=== PATIENT | male | born 1970 | race Caucasian/White ===

== ENCOUNTER 2022-07-28 17:56 | Outpatient (REF) | payer OTHER, SELFPAY ==
[2022-07-28 18:47] LABS: Abs Immature Grans 0.07 10^3/uL (0.0-0.06); Absolute Basophil Count 0.14 10^3/uL (0.0-0.2); Absolute Eosinophil Count 0.55 10^3/uL (0.0-0.7); Absolute Monocyte Count 1.02 10^3/uL (0.1-0.8); Absolute Neutrophil Count 9.23 10^3/uL (1.2-6.7); Basophils % 1.1; Eosinophils % 4.2; HCT 46.3 % (40.0-50.0); HGB 15.9 g/dL (13.5-17.5); Immature Grans % 0.5; Lymphocytes % 16.1; MCH 32.4 pg (27.0-33.0); MCHC 34.3 % (32.0-36.0); MCV 95 fL (80-95); Monocytes % 7.8; Neutrophils % 70.3; Platelet Count 278 10^3/uL (130-400); RDW 12.3 % (11.8-14.1); RDW-SD 43.2 fL; WBC 13.13 10^3/uL (4.4-10.8)
[2022-07-28 18:48] LABS: Absolute Lymphocyte Count 2.11 10^3/uL (1.2-3.4)
[2022-07-28 18:59] LABS: ALT 46 U/L (16-63); AST 29 U/L (15-37); Albumin 3.9 g/dL (3.4-5.0); Alkaline Phosphatase 79 U/L (46-116); BUN 12 mg/dL (7-18); Bilirubin, Total 0.3 mg/dL (0.2-1.0); CREATININE 0.8 mg/dL (0.70-1.30); Calcium 9.1 mg/dL (8.5-10.1); Calculated LDL 135 mg/dL (<100); Chloride 102 mmol/L (98-107); Cholesterol 214 mg/dL (<200); Estimated GFR 107.82 (mL/min/1.73m2); Glucose 102 mg/dL (74-106); HDL Cholesterol 66 mg/dL (40-60); Sodium 138 mmol/L (136-145); Total Protein 7.7 g/dL (6.4-8.2); Triglyceride 68 mg/dL (<150)
== END 2022-07-28 17:57 | disposition home or self-care (01) ==
LOC: NCHCN 17:56
PROVIDERS: PCP Family Medicine; Visit Provider Nurse Practitioner Family
DX: F10.21 Alcohol dependence, in remission (principal); F41.8 Other specified anxiety disorders; E78.5 Hyperlipidemia, unspecified; F17.210 Nicotine dependence, cigarettes, uncomplicated
CPT/HCPCS: 80053; 80061; 85025

== ENCOUNTER 2022-12-09 12:39 | Emergency (ER) | payer OTHER, SELFPAY ==
[2022-12-09 12:42] VITALS: BP 137/75; PULSE 95; RESP 18; TEMP 36.7; O2SAT 100
[2022-12-09] MEDS: LORazepam 1 MG TAB PO (14:14)
[2022-12-09] MEDS: Acetaminophen 325 MG TAB 650 MG PO (14:14)
[2022-12-09 14:15] LABS: Abs Immature Grans 0.03 10^3/uL (0.0-0.06); Absolute Basophil Count 0.14 10^3/uL (0.0-0.2); Absolute Lymphocyte Count 2.18 10^3/uL (1.2-3.4); Absolute Monocyte Count 0.76 10^3/uL (0.1-0.8); Absolute Neutrophil Count 7.99 10^3/uL (1.2-6.7); Basophils % 1.2; Eosinophils % 3.6; HCT 46.3 % (40.0-50.0); HGB 16.1 g/dL (13.5-17.5); Immature Grans % 0.3; Lymphocytes % 18.9; MCH 32.4 pg (27.0-33.0); MCHC 34.8 % (32.0-36.0); MCV 93 fL (80-95); MPV 9.2 fL (8.0-11.0); Monocytes % 6.6; Neutrophils % 69.4; Platelet Count 244 10^3/uL (130-400); RBC 4.97 10^6/uL (4.36-5.78); RDW 13.1 % (11.8-14.1); WBC 11.52 10^3/uL (4.4-10.8)
[2022-12-09 14:16] LABS: Absolute Eosinophil Count 0.41 10^3/uL (0.0-0.7)
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
[2022-12-09 14:30] LABS: *AMPHETAMINES SCREEN URINE Negative (Negative); *BARBITURATES SCREEN URINE Negative (Negative); *BENZODIAZEPINES SCREEN URINE Positive (Negative); Cannabinoids THC Positive (Negative); Cocaine Screen,Urine Negative (Negative); METHADONE URINE SCREEN Negative (Negative); OPIATES URINE SCREEN Positive (Negative); Tricyclic Antidepressants Negative (Negative)
[2022-12-09 14:42] LABS: ALT 38 U/L (16-63); AST 29 U/L (15-37); Albumin 4.3 g/dL (3.4-5.0); Alkaline Phosphatase 73 U/L (46-116); Anion Gap 7.5 mmol/L (3-11); BUN 13 mg/dL (7-18); Bilirubin, Total 0.4 mg/dL (0.2-1.0); CO2 29.5 mmol/L (21.0-32.0); CREATININE 0.9 mg/dL (0.70-1.30); Calcium 9.4 mg/dL (8.5-10.1); Chloride 103 mmol/L (98-107); Estimated GFR 104.05 (mL/min/1.73m2); Glucose 88 mg/dL (74-106); Potassium 4.1 mmol/L (3.5-5.1); Sodium 140 mmol/L (136-145); Total Protein 8.1 g/dL (6.4-8.2)
[2022-12-09 15:00] LABS: FREE T4 0.89 ng/dL (0.76-1.46)
[2022-12-09] MEDS: diphenhydrAMINE 25 MG CAP (16:05)
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
--- NOTE | 2022-12-09 22:56 | ED.PROG_ITS ---
Date of service: 12/09/22 Time of Service: 03:00 Medical Decision Making Patient was signed out to me by Dr. Hager who came with anxiety and depression who was seen in [facility] and he left AMA and is here also stating that he is depressed but not suicidal homicidal. He has been medically cleared and will be evaluated by crisis in the morning. Medical Records Medical records reviewed: Yes I reviewed the patient's medical records. Exam Narrative Exam Narrative: Exam unchanged as per Does have a Dr Hager's exam Sign Out Sign Out Data: Sign Out Comment: pending [facility] eval for psych plan; depression, anxiety Last updated by Alvaro Liang MD at 12/09/22 15:31 Discharge Plan Discharge Details Chief Complaint: PsychEval Primary Care Provider: Huy Freed ED Provider: Gabriele Sheffield Home Meds and New Rx's Prescriptions: No Action lorazepam 0.5 MG tablet 0.5 mg PO BID PRN PRN (Reason: Anxiety) Qty: 8 0RF trazodone 50 mg tablet 50 mg PO DAILY Patient Comments: TAKE ONE TABLET BY MOUTH AT BEDTIME NEEDED diazepam [Valium] 5 mg tablet 5 mg PO BID Patient Comments: 1 tablet by mouth twice a day oxycodone 5 mg tablet 5 mg PO PRN PRN lamotrigine 25 mg Tablet 25 mg PO DAILY Patient Comments: new rx 12/09/22 hydroxyzine HCl 25 mg Tablet 25 - 50 mg PO Q6H
--- NOTE | 2022-12-09 23:18 | W.EDPROG ---
Date of service: 12/09/22 Time of Service: 23:00 Medical Decision Making 2300 -- please see previous providers notes for initial presentation, exam, plan and course. Case endorsed to continue to monitor while awaiting placement. Patient is here awaiting placement for anxiety and depression in the setting of alcohol abuse, recent DUI and increased life stressors, specifically with his mother. Initial assessment per triage and provider determined that pt is not SI or HI. Mental health note reported that pt is suicidal at times but has no intent or plan. He has had no CPSO since arrival. He has been medically cleared. He has been evaluated by mental health and they are seeking inpatient psychiatric hospitalization. It has been reported that inpatient referrals for placement have been sent. We will hold patient in the ED overnight to determine if there is any potential for transfer tomorrow and if not and there is sufficient bed availability, will likely admit to the floor while awaiting placement. Provider notes indicate that patient's last drink was 2 days ago. He had reportedly been medically cleared and his vitals were reassuring on arrival. Evening nursing staff reports that pt has been sleeping since their arrival at 1830. He had received Ativan and Benadryl for sleep this afternoon. 0430 -- recheck of vitals within normal limits. Patient had no acute complaints. 0600 -- patient ambulatory to the bathroom and appears in no acute distress. No observable signs of alcohol withdrawal. 0800 -- Case endorsed to oncoming provider to continue to monitor while awaiting placement. If potential availability for transfer this morning, will hold in the ED. If unlikely transfer available today, consider admission to the floor while awaiting placement. Medical Records Medical records reviewed: Yes I reviewed the patient's medical records. Sign Out Sign Out Data: Sign Out Comment: pending [facility] eval for psych plan; depression, anxiety Last updated by Alvaro Liang MD at 12/09/22 15:31 Sign Out Comment: pending [facility] eval for psych plan; depression, anxiety. He has abnormal behavior in the emergency department and received Benadryl for sleep. Last updated by Gabriele Sheffield MD at 12/09/22 23:00 Discharge Plan Discharge Details Chief Complaint: PsychEval Primary Care Provider: Huy Freed ED Provider: Tereza Louie Home Meds and New Rx's Prescriptions: No Action lorazepam 0.5 MG tablet 0.5 mg PO BID PRN PRN (Reason: Anxiety) Qty: 8 0RF trazodone 50 mg tablet 50 mg PO DAILY Patient Comments: TAKE ONE TABLET BY MOUTH AT BEDTIME NEEDED diazepam [Valium] 5 mg tablet 5 mg PO BID Patient Comments: 1 tablet by mouth twice a day oxycodone 5 mg tablet 5 mg PO PRN PRN lamotrigine 25 mg Tablet 25 mg PO DAILY Patient Comments: new rx 12/09/22 hydroxyzine HCl 25 mg Tablet 25 - 50 mg PO Q6H
[2022-12-09 23:44] LABS: ETHANOL BLOOD < 3.0 mg/dL (<10)
[2022-12-10 04:21] VITALS: BP 113/76; PULSE 75; RESP 16; TEMP 36.6; O2SAT 98
[2022-12-10] MEDS: Ibuprofen 600 MG TAB PO (06:46)
[2022-12-10] MEDS: Acetaminophen 500 MG TAB 1000 MG PO (06:46)
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
[2022-12-10] MEDS: Nicotine 4 MG GUM CH (09:11)
[2022-12-10] MEDS: lamoTRIgine 25 MG TAB PO (09:11)
--- NOTE | 2022-12-10 11:54 | ED.PROG_ITS ---
Date of service: 12/10/22 Time of Service: 11:54 Medical Decision Making pt now denying si and wants to go home, has been calm and cooperative since being here and is caox4 with clear speech and no concerning findings on physical exam. Evaluated by [facility] and created a safety plan with them. He is stable for d/c, will f/u with [facility] and return precautions given Sign Out Sign Out Data: Sign Out Comment: pending [facility] eval for psych plan; depression, anxiety Last updated by Alvaro Liang MD at 12/09/22 15:31 Sign Out Comment: pending [facility] eval for psych plan; depression, anxiety. He has abnormal behavior in the emergency department and received Benadryl for sleep. Last updated by Gabriele Sheffield MD at 12/09/22 23:00 Sign Out Comment: Voluntary. Medically cleared. Awaiting placement. Last updated by Tereza Louie DO at 12/10/22 08:11 Discharge Plan Disposition Patient Disposition: Home Condition: Stable Discharge Details Clinical Impression: Depression Primary Care Provider: Huy Freed ED Provider: Benoit Nieto [place] Meds and New Rx's Prescriptions: Continued lorazepam 0.5 MG tablet 0.5 mg PO BID PRN PRN (Reason: Anxiety) Qty: 8 0RF trazodone 50 mg tablet 50 mg PO DAILY Patient Comments: TAKE ONE TABLET BY MOUTH AT BEDTIME NEEDED diazepam [Valium] 5 mg tablet 5 mg PO BID Patient Comments: 1 tablet by mouth twice a day oxycodone 5 mg tablet 5 mg PO PRN PRN lamotrigine 25 mg Tablet 25 mg PO DAILY Patient Comments: new rx 12/09/22 hydroxyzine HCl 25 mg Tablet 25 - 50 mg PO Q6H Discharge Instructions Instructions: Depression (ED) Additional Instructions: Follow up with your primary care provider and [facility] human services if you feel more ill or have worsening thoughts of self harm return to the emergency department
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
== END 2022-12-10 13:42 | disposition home or self-care (01) ==
PROVIDERS: Emergency Medicine; Physician Assistant; Emergency Provider Emergency Medicine; PCP Family Medicine
DX: F32.A Depression, unspecified (principal); Z73.3 Stress, not elsewhere classified; F10.10 Alcohol abuse, uncomplicated; F41.9 Anxiety disorder, unspecified
CPT/HCPCS: 80053; 80307; 99283; 80320; 84439; 84443; 85025

== ENCOUNTER 2024-07-04 15:46 | Outpatient (REF) | payer OTHER, SELFPAY ==
[2024-07-04 20:45] LABS: ALT 40 U/L (16-63); AST 28 U/L (15-37); Albumin 4.5 g/dL (3.4-5.0); Alkaline Phosphatase 60 U/L (46-116); Anion Gap 8.3 mmol/L (3-11); BUN 18 mg/dL (7-18); Bilirubin, Total 0.36 mg/dL (0.2-1.0); CO2 28.7 mmol/L (21.0-32.0); CREATININE 0.9 mg/dL (0.70-1.30); Calcium 9.4 mg/dL (8.5-10.1); Calculated LDL 127 mg/dL (<100); Chloride 105 mmol/L (98-107); Cholesterol 240 mg/dL (<200); Estimated GFR 102.76 (mL/min/1.73m2); Glucose 87 mg/dL (74-106); HDL Cholesterol 95 mg/dL (40-60); Potassium 4.1 mmol/L (3.5-5.1); Sodium 142 mmol/L (136-145); Total Protein 7.7 g/dL (6.4-8.2); Triglyceride 90 mg/dL (<150)
[2024-07-05 19:02] LABS: Hepatitis C Ab w Rflx HCV PCR Negative (Negative)
== END 2024-07-04 15:47 | disposition home or self-care (01) ==
LOC: NCHCN 15:46
PROVIDERS: PCP Family Medicine; Visit Provider Nurse Practitioner Family
DX: Z00.00 Encounter for general adult medical examination without abnormal findings (principal)
CPT/HCPCS: 80053; 80061; 86803

== ENCOUNTER 2024-10-03 19:59 | Outpatient (REF) | payer BC, SELFPAY ==
[2024-10-03 22:21] LABS: Bacteria Negative HPF (Negative); C & S Indicated? No; Casts Negative LPF (Negative); Crystals Rare Uric Acid HPF (Negative); Epithelial Cells Rare HPF (Negative); Mucus Negative (Negative); RBC 0-2 HPF (0-2); WBC Negative HPF (0-5)
== END 2024-10-03 20:00 | disposition home or self-care (01) ==
LOC: NCHCN 19:59
PROVIDERS: PCP Nurse Practitioner Family; Visit Provider Nurse Practitioner Family
DX: R31.29 Other microscopic hematuria (principal)
CPT/HCPCS: 81015

== ENCOUNTER 2025-02-21 09:32 | Emergency (ER) | payer BC, SELFPAY ==
[2025-02-21] VITALS (20 sets, daily range): BP systolic 138–169; BP diastolic 73–105; PULSE 73–95; RESP 7–21; TEMP 36.6; O2SAT 97–99
--- NOTE | 2025-02-21 10:00 | DI.CT_ITS ---
Exam(s) CT ABDOMEN PELVIS W EXAM: CT ABDOMEN PELVIS W CLINICAL HISTORY: central abdominal pain,new hernia, R flank pain. TECHNIQUE: Imaging Protocol: Axial computed tomography images with coronal and sagittal reformatted images were created and reviewed CONTRAST MATERIAL: Intravenous: Omnipaque 350 Contrast volume:100 ml Oral: Yes COMPARISON: CT CT SPINE THORACIC AND LUMBAR W/O from 01/04/[address] CHEST/ABD/PELVIS W/CONTRAST from 01/04/2025 FINDINGS: ABDOMEN and PELVIS: Lung Bases: No acute findings. Liver: Normal density. There are few small cysts. No suspicious mass. Gallbladder and biliary tract: No radiodense calculus. No wall thickening or pericholecystic fluid. No biliary dilation. Pancreas: Normal density. No abnormal calcifications or inflammatory process. No evidence of mass. Spleen: Normal. Kidneys: Normal size, contour and axis. No radiodense stones. No obstructive uropathy. Small cyst upper pole right kidney. No suspicious masses seen. Adrenal glands: No masses seen. Vasculature: Abdominal aorta non-dilated. Soft tissues: Unremarkable minimal amount of fat in the left inguinal canal. Bladder: No gross wall thickening. No calculi.No focal mass. Bowel: No obstruction. No bowel wall thickening. Appendix normal. Diverticulosis of the descending and sigmoid Peritoneal cavity: No ascites. No focal collection. No mesenteric inflammatory response. No free air. Bones: There is mild compression of the anterosuperior endplate of L1 with some end plate sclerosis, consistent with some increased healing. There are old bilateral L5 pars defects. There degenerative disc changes greatest at L4-5 and L5-S1. There are prominent fluid bridging osteophytes at L2-3. Reproductive organs: Unremarkable. Lymph nodes: No pathologically enlarged lymph nodes. IMPRESSION:: No acute abnormality in the abdomen or pelvis. Stable mild L1 compression fracture. No new fractures are identified RADIATION DOSE DELIVERED: 429.88mGy.cm Total DLP DATA REPOSITORY: All CT scans at this facility are submitted to the National Radiology Data Registry (NRDR) Dose Index Registry (DIR) with the [employer] (A[employer]). RADIATION OPTIMIZATION: All CT scans at this facility use at least one of these dose optimization techniques: automated exposure control; mA and/or kV adjustment per patient size (includes targeted exams where dose is matched to clinical indication); or iterative reconstruction.
[2025-02-21 10:10] LABS: Abs Immature Grans 0.04 10^3/uL (0.0-0.06); HCT 44.1 % (40.0-50.0); HGB 15.3 g/dL (13.5-17.5); Immature Grans % 0.4 %; MCH 32.5 pg (27.0-33.0); MCHC 34.7 % (32.0-36.0); MCV 94 fL (80-95); MPV 9.2 fL (8.0-11.0); Platelet Count 265 10^3/uL (130-400); RBC 4.71 10^6/uL (4.36-5.78); RDW 13.0 % (11.8-14.1); RDW-SD 44.7 fL; WBC 10.92 10^3/uL (4.4-10.8)
[2025-02-21] MEDS: Ketorolac 15 MG/ML VIAL IVP (10:20)
[2025-02-21] MEDS: Ondansetron 4 MG/2 ML VIAL IVP (10:20)
[2025-02-21] MEDS: Normal Saline 1,000 ML 1000 ML IV (10:21)
[2025-02-21] MEDS: ACETAMINOPHEN 1,000 MG/100 ML BAG 400 MG IVPB (10:21)
[2025-02-21 10:30] LABS: ALT 79 U/L (16-63); AST 45 U/L (15-37); Albumin 4.2 g/dL (3.4-5.0); Alkaline Phosphatase 99 U/L (46-116); Anion Gap 10.3 mmol/L (3-11); BUN 23 mg/dL (7-18); Bilirubin, Total 0.5 mg/dL (0.2-1.0); CO2 27.7 mmol/L (21.0-32.0); Calcium 9.8 mg/dL (8.5-10.1); Chloride 98 mmol/L (98-107); Estimated GFR 90.00 (mL/min/1.73m2); Glucose 117 mg/dL (74-106); Lipase 41 U/L (<78); Magnesium 2.0 mg/dL (1.8-2.4); Potassium 4.0 mmol/L (3.5-5.1); Sodium 136 mmol/L (136-145); Total Protein 7.9 g/dL (6.4-8.2); Troponin I 5 ng/L (<or=76)
[2025-02-21] MEDS: Omnipaque 350 MG/ML 50 ML BTL PO (10:45)
[2025-02-21] MEDS: Breeza Beverage 473 ML BTL PO ×2 (10:45→10:46)
--- NOTE | 2025-02-21 11:18 | ED.GENADUL_ITS ---
Discharge Plan Disposition Patient Disposition: Home Condition: Stable Discharge Details Clinical Impression: Gastritis Primary Care Provider: SIVA CAMACHO ED Provider: Ellis Nickerson Home Meds and New Rx's Prescriptions: No Action lisdexamfetamine 40 mg capsule 40 mg PO DAILY Discharge Instructions Instructions: Gastritis ED Additional Instructions: You were seen in the emergency department for your centralized abdominal pain, there is no focal abnormality seen on your CT, there is no signs of dangerous infection or electrolyte abnormalities on your laboratory workup. You do have a broken the lumbar vertebrae and you may have some referred pain from pinched nerves in this area radiating around to your anterior abdomen also you have been taking 2400 mg of ibuprofen per day for about a month which likely is contributing to acid reflux and gastritis. Please discontinue ibuprofen and use Tylenol 1000 mg 4 times per day, use the prescribed ondansetron to aid in nausea and vomiting relief 20 to 30 minutes prior to meals. Take daily [id number] famotidine or Pepcid AC twice per day for a few weeks. Please follow-up with your primary care appointment on the and have them possibly schedule you for an ultrasound of the right upper quadrant and an EGD prior to that visit. Please return to the emergency department for any severe acute worsening, intractable nausea or vomiting or any other emergent concerns Stand Alone Forms: Work Release Referrals: SIVA CAMACHO, [employer] [Primary Care Provider, Medicine] Discharge Data Discharge Date/Time-TO BE ENTERED AT DEPARTURE: 02/21/25 13:17 HPI General Date/Time Provider Initiated Documentation: 02/21/25 09:59 . HPI Narrative: 55 year-old male presents to ED today by POV/ambulating with a chief complaint of generalized abdominal pain with onset for the past few weeks. Quality described as strong waves of pain that come on- and cause him to vomit foamy stomach acid which usually provides some relief, no radiation to hematemesis, fever, dysuria, black/tarry stools, cough, shortness of breath. Severity is described as severe. Palliating factors include usually feels better after vomiting. Provoking factors include nothing specific. Events leading up to the incident/Associated Symptoms: Patient denies any abdominal surgical history, recently had a compression fracture of lumbar vertebra that is healing well but he has been taking excessive amounts of NSAIDs 2400 mg/day for about a month. Patient not anticoagulated. Related Data Home Medications ?Medication ?Instructions ?Recorded ?Confirmed lisdexamfetamine 40 mg capsule 40 mg PO DAILY 02/12/25 02/21/25 Allergies Allergy/AdvReac Type Severity Reaction Status Date / Time vu rodríguez AdvReac Mild Other (See Unverified 02/21/25 09:41 Comment) General Stated Complaint: Abd Prob WON: 3 Review of Systems All systems reviewed & are unremarkable except as noted in HPI and below Exam Narrative Exam Narrative: GENERAL APPEARANCE: Well-nourished, non-toxic, awake and alert, atraumatic, no acute distress. SKIN: Warm, pink, dry, intact, without rashes/lesions/ulcerations. HEAD: Normocephalic, atraumatic, normal hair distribution for gender/age. EYES: Normal conjunctiva, no exudates on lids/lashes. ENT: Nares patent, no circumoral cyanosis, no facial swelling NECK: Supple, trachea midline, painless cervical ROM. LUNGS/CHEST: Lungs CTA bilaterally- no rhonchi/rales/wheezes diffusely, non- labored respirations, normal A/P diameter, symmetrical expansion, no chest wall deformity HEART (CV/PV): Regular rate and rhythm without murmur, no peripheral edema, no JVD. ABDOMEN: Soft, non-distended, no guarding, epigastric / RUQ tenderness with (+) David's, no McBurney's point tenderness, no CVA tenderness to percussion bilaterally MSK: Normal ROM, no swelling/deformity to bilateral UEs or LEs, moving all extremities without weakness, no cyanosis, spine midline without tenderness, normal curvature. NEURO: Mental Status AAOx4 - alert to person, place, time, events No facial droop, no forehead involvement. Motor: No focal weakness - strength 5/5 in bilateral UEs and LEs, proximal and distal, symmetric. Sensory: sensation intact to light touch globally. Gait normal: patient ambulated without ataxia into ED room. PSYCH: euthymic, cooperative, pleasant, appropriate speech Course Vital Signs Vital signs: Vital Signs Temperature 36.6 C 02/21/25 09:37 Pulse 88 02/21/25 09:37 Respiratory Rate 17 02/21/25 09:37 Blood Pressure 169/98 H 02/21/25 09:37 Pulse Oximetry 99 02/21/25 09:37 Temperature 36.6 C 02/21/25 09:41 Pulse 88 02/21/25 09:41 Respiratory Rate 17 02/21/25 09:41 Blood Pressure 169/98 H 02/21/25 09:41 Blood Pressure Position Sitting 02/21/25 09:41 Pulse Oximetry 99 02/21/25 09:41 Oxygen Delivery Method Room Air 02/21/25 09:41 Oxygen Flow Rate 0 02/21/25 09:41 Pain Level 10 02/21/25 10:20 Lab/Test Results Lab/Test Results: Laboratory Tests Range/Units 02/21/25 09:55 WBC (4.4-10.8) 10^3/uL 10.92 H RBC (4.36-5.78) 10^6/uL 4.71 Hgb (13.5-17.5) g/dL 15.3 Hct (40.0-50.0) % 44.1 MCV (80-95) fL 94 MCH (27.0-33.0) pg 32.5 MCHC (32.0-36.0) % 34.7 RDW (11.8-14.1) % 13.0 Plt Count (130-400) 10^3/uL 265 MPV (8.0-11.0) fL 9.2 Immature Gran % % 0.4 Neutrophils % % 78.4 Lymphocytes % % 11.9 Monocytes % % 7.2 Eosinophils % % 1.4 Basophils % % 0.7 Nucleated RBC % (0.0-0.3) % 0.0 Absolute Neutrophils (1.2-6.7) 10^3/uL 8.56 H Absolute Lymphocytes (1.2-3.4) 10^3/uL 1.30 Absolute Monocytes (0.1-0.8) 10^3/uL 0.79 Absolute Eosinophils (0.0-0.7) 10^3/uL 0.15 Absolute Basophils (0.0-0.2) 10^3/uL 0.08 VBG Lactate (<or=2.0) mmol/L 0.8 Sodium (136-145) mmol/L 136 Potassium (3.5-5.1) mmol/L 4.0 Chloride (98-107) mmol/L 98 Carbon Dioxide (21.0-32.0) mmol/L 27.7 Anion Gap (3-11) mmol/L 10.3 BUN (7-18) mg/dL 23 H Creatinine (0.70-1.30) mg/dL 1.0 Est GFR (CKD-EPI 2020) (mL/min/1.73m2) 90.00 Glucose (74-106) mg/dL 117 H Calcium (8.5-10.1) mg/dL 9.8 Magnesium (1.8-2.4) mg/dL 2.0 Total Bilirubin (0.2-1.0) mg/dL 0.5 AST (15-37) U/L 45 H ALT (16-63) U/L 79 H Alkaline Phosphatase (46-116) U/L 99 Troponin I (<or=76) ng/L 5 Total Protein (6.4-8.2) g/dL 7.9 Albumin (3.4-5.0) g/dL 4.2 Lipase (<78) U/L 41 Medical Decision Making This dictation utilizes [id number] dictation software and may contain unedit ed grammatical errors. 55 year-old male presents to ED today by POV/ambulating with a chief complaint of generalized abdominal pain with onset for the past few weeks. Quality described as strong waves of pain that come on- and cause him to vomit foamy stomach acid which usually provides some relief, no radiation to hematemesis, fever, dysuria, black/tarry stools, cough, shortness of breath. Severity is described as severe. Palliating factors include usually feels better after vomiting. Provoking factors include nothing specific. Events leading up to the incident/Associated Symptoms: Patient denies any abdominal surgical history, recently had a compression fracture of lumbar vertebra that is healing well but he has been taking excessive amounts of NSAIDs 2400 mg/day for about a month. Patients' medical history: Fractured lumbar vertebra, nicotine dependence, alcoholism in remission. Family and social history: Noncontributory. Pertinent exam findings / vital signs include epigastric tenderness, positive David sign, no CVA tenderness to percussion, benign cardiopulmonary exam, neuro intact, afebrile and nontoxic. Differential / pathologies of concern include gastritis, PUD, biliary colic, pancreatitis, SBO. Diagnostic studies of: -CBC, CMP, lactate, magnesium, lipase, troponin, UA, CT ABD/pelvis with contrast. - CBC shows mild leukocytosis of 10.92, nonspecific, no left shift, no anemia - Lactate negative - CMP shows no actionable abnormality with mildly elevated BUN at 23 - Magnesium is within normal limits - Lipase negative - Troponin negative - UA shows trace blood no signs of infection - CT shows stable L1 compression fracture and no other pathology Interventions of: -4 mg IVP ondansetron, 15 mg IVP Toradol, 1 g IV Tylenol, 1 L IVF NS. ED Course/Assessment/Plan: 55-year-old male with an L1 compression fracture is complaining of severe abdominal pain, CT is negative, I do suspect that he is having gastritis due to high-dose NSAID use for the past month due to his stable compression L1 fracture. He has no signs of severe infection, troponins negative did not suspect any damage to the heart with reliable onset, counseled the patient on trial of famotidine twice daily and discontinuing his ibuprofen in favor of Tylenol. Patient will follow-up with his primary care provider with strict return to ED criteria for any intractable nausea or vomiting, black or bloody stools, fevers, vomiting of blood or [id number] material. Findings not consistent with hollow organ perforation, biliary colic, pancreatitis, small bowel obstruction, appendicitis or other acute emergent abdominal pathology do suspect gastritis. Disposition of Gastritis. Patient verbalized understanding of the plan and return to ED criteria and engaged in shared decision making. Medical Records Medical records reviewed: Yes I reviewed the patient's medical records. Imaging Data Radiologic Study: Attestation: I personally reviewed and interpreted this imaging study as follows: Imaging: CT Scan Radiologist's impression: EXAM: CT ABDOMEN PELVIS W CLINICAL HISTORY: central abdominal pain,new hernia, R flank pain. TECHNIQUE: Imaging Protocol: Axial computed tomography images with coronal and sagittal reformatted images were created and reviewed CONTRAST MATERIAL: Intravenous: Omnipaque 350 Contrast volume:100 ml Oral: Yes COMPARISON: CT CT SPINE THORACIC AND LUMBAR W/O from 01/04/[address] CHEST/ABD/PELVIS W/CONTRAST from 01/04/2025 FINDINGS: ABDOMEN and PELVIS: Lung Bases: No acute findings. Liver: Normal density. There are few small cysts. No suspicious mass. Gallbladder and biliary tract: No radiodense calculus. No wall thickening or pericholecystic fluid. No biliary dilation. Pancreas: Normal density. No abnormal calcifications or inflammatory process. No evidence of mass. Spleen: Normal. Kidneys: Normal size, contour and axis. No radiodense stones. No obstructive uropathy. Small cyst upper pole right kidney. No suspicious masses seen. Adrenal glands: No masses seen. Vasculature: Abdominal aorta non-dilated. Soft tissues: Unremarkable minimal amount of fat in the left inguinal canal. Bladder: No gross wall thickening. No calculi.No focal mass. Bowel: No obstruction. No bowel wall thickening. Appendix normal. Diverticulosis of the descending and sigmoid Peritoneal cavity: No ascites. No focal collection. No mesenteric inflammatory response. No free air. Bones: There is mild compression of the anterosuperior endplate of L1 with some end plate sclerosis, consistent with some increased healing. There are old bilateral L5 pars defects. There degenerative disc changes greatest at L4-5 and L5-S1. There are prominent fluid bridging osteophytes at L2-3. Reproductive organs: Unremarkable. Lymph nodes: No pathologically enlarged lymph nodes. IMPRESSION:: No acute abnormality in the abdomen or pelvis. Stable mild L1 compression fracture. No new fractures are identified Lab Data Lab results reviewed: Yes I reviewed the patient's lab results. Labs: Laboratory Tests Range/Units 02/21/25 02/21/25 09:55 11:58 WBC (4.4-10.8) 10^3/uL 10.92 H RBC (4.36-5.78) 10^6/uL 4.71 Hgb (13.5-17.5) g/dL 15.3 Hct (40.0-50.0) % 44.1 MCV (80-95) fL 94 MCH (27.0-33.0) pg 32.5 MCHC (32.0-36.0) % 34.7 RDW (11.8-14.1) % 13.0 Plt Count (130-400) 10^3/uL 265 MPV (8.0-11.0) fL 9.2 Immature Gran % % 0.4 Neutrophils % % 78.4 Lymphocytes % % 11.9 Monocytes % % 7.2 Eosinophils % % 1.4 Basophils % % 0.7 Nucleated RBC % (0.0-0.3) % 0.0 Absolute Neutrophils (1.2-6.7) 10^3/uL 8.56 H Absolute Lymphocytes (1.2-3.4) 10^3/uL 1.30 Absolute Monocytes (0.1-0.8) 10^3/uL 0.79 Absolute Eosinophils (0.0-0.7) 10^3/uL 0.15 Absolute Basophils (0.0-0.2) 10^3/uL 0.08 VBG Lactate (<or=2.0) mmol/L 0.8 Sodium (136-145) mmol/L 136 Potassium (3.5-5.1) mmol/L 4.0 Chloride (98-107) mmol/L 98 Carbon Dioxide (21.0-32.0) mmol/L 27.7 Anion Gap (3-11) mmol/L 10.3 BUN (7-18) mg/dL 23 H Creatinine (0.70-1.30) mg/dL 1.0 Est GFR (CKD-EPI 2020) (mL/min/1.73m2) 90.00 Glucose (74-106) mg/dL 117 H Calcium (8.5-10.1) mg/dL 9.8 Magnesium (1.8-2.4) mg/dL 2.0 Total Bilirubin (0.2-1.0) mg/dL 0.5 AST (15-37) U/L 45 H ALT (16-63) U/L 79 H Alkaline Phosphatase (46-116) U/L 99 Troponin I (<or=76) ng/L 5 Total Protein (6.4-8.2) g/dL 7.9 Albumin (3.4-5.0) g/dL 4.2 Lipase (<78) U/L 41 Urine Color (Yellow) Yellow Urine Clarity (Clear) Clear Urine pH (5-8) 5.5 Ur Specific [place] (1.005-1.025) 1.010 Urine Protein (Neg-Trace) mg/dL Negative Urine Ketones (Negative) mg/dL Trace H Urine Blood (Negative) Trace-lysed H Urine Nitrite (Negative) Negative Urine Bilirubin (Negative) Negative Urine Urobilinogen (Up to 0.2) mg/dL 0.2 Ur Leukocyte Esterase (Negative) Negative Urine RBC (0-2) HPF 3-5 H Urine WBC (0-5) HPF 0-2 Ur Epithelial Cells (Negative) HPF Rare Urine Crystals (Negative) HPF Negative Urine Bacteria (Negative) HPF Rare Urine Casts (Negative) LPF Negative Urine Mucus (Negative) Moderate Ur Culture Indicated? No Urine Glucose (Negative) mg/dL Negative PFSH All Active Problems (Updated 02/21/25 @ 13:08 by JEVON Guerrero) Gastritis (Acute) Medical History L4 vertebral fracture From fall 07/26/1989 Closed fracture of first lumbar vertebra Colon cancer screening declined Vaccination declined Elevated blood pressure reading without diagnosis of hypertension Wheezing Low back pain Microscopic hematuria Attention deficit hyperactivity disorder Nicotine dependence Harmful pattern of use of alcohol Chronic alcoholism in remission Hyperlipidemia Depression Anxiety Alcohol abuse Surgical History (Updated 02/12/25 @ 09:33 by Angela De La Torre) H/O colonoscopy 07/06/2011, and 05/12/1999 History of knee surgery Family History (Updated 02/12/25 @ 09:35 by Angela De La Torre) Paternal Grandfather FH: HTN (hypertension) FH: alcoholism FHx: type 1 diabetes mellitus Maternal Grandfather Colorectal cancer Social History (Updated 02/12/25 @ 09:38 by Angela De La Torre) Smoking/Tobacco Use Status: Current every day Tobacco Type: cigarettes Smoking packs per day: 1 Smoking cigarettes per day: 20.0 Smoking risk assessment performed?: Yes Alcohol Intake: former Drug use: Occasionally Substance use type: marijuana Details: 4 or more times per week Household members: family Housing: house Do you feel safe in your relationship?: Yes
[2025-02-21] MEDS: Normal Saline - Diluent 50 ML VIAL IJ (11:50)
[2025-02-21] MEDS: Omnipaque 350 MG/ML 100 ML BTL IJ (11:51)
[2025-02-21 12:04] LABS: Glucose Negative (Negative)
[2025-02-21 13:34] LABS: WBC 0-2 HPF (0-5)
[2025-02-21 13:35] LABS: C & S Indicated? No
== END 2025-02-21 13:17 | disposition home or self-care (01) ==
PROVIDERS: Emergency Provider Physician Assistant; PCP Nurse Practitioner Family
DX: K29.70 Gastritis, unspecified, without bleeding (principal); E78.5 Hyperlipidemia, unspecified; F17.210 Nicotine dependence, cigarettes, uncomplicated
CPT/HCPCS: 80053; 83690; 96374; 96375; 99285; 74177; 81003; 81015; 83605; 83735; 84484; 85025; 99284; J0131; J1885; J2405; J3490; Q9967

== ENCOUNTER 2025-06-13 03:22 | Outpatient (CLI) | payer BC, SELFPAY ==
[2025-06-13] MEDS: Levalbuterol HFA 15 GM INH 4 PUFF IH (16:58)
[2025-06-13] MEDS: Inhaler, Assist Device 1 EACH MC (16:58)
--- NOTE | 2025-06-14 08:25 | W.PFT ---
Date of service: 06/13/25 Time of Service: 15:18 Pulmonary Function Test Result Indications: COPD Impression 1. Good patient effort was noted. ATS standards for reproducibility were met. 2. Spirometry showed moderate obstructive lung disease with an FEV1 of 78% (3.38 L) 3. Following the administration of a bronchodilator there was not a signifiacnt response 4. TLC was normal. No evidence of restrictive lung disease 5. DLCO was normal at 85% predicted
== END 2025-06-13 03:23 | disposition home or self-care (01) ==
LOC: RT 03:22
PROVIDERS: PCP Nurse Practitioner Family; Visit Provider Nurse Practitioner Family
DX: J44.9 Chronic obstructive pulmonary disease, unspecified (principal)
CPT/HCPCS: 94060; 94726; 94729